=== PATIENT | male | born 1955 | race Two or more races ===

== ENCOUNTER 2022-03-15 15:09 | Emergency (ER) | payer MEDICARE ==
[~2022-03-15] VITALS: Ht 160 cm; Wt 70.5 kg
[2022-03-15 15:18] VITALS: BP 145/70
[2022-03-15] MEDS ORDERED: HYDR-3972 PO (17:51)
[2022-03-15] MEDS ORDERED: HYDROcodone/acetaminophen 10/325mg tab PO ONE (18:30)
--- NOTE | 2022-03-15 19:33 | NUR ---
SPLINTING DONE BY DAVIDA VANESSA
== END 2022-03-15 19:33 | disposition home or self-care (01) ==
LOC: ER 15:09
DX: S82.201A Unspecified fracture of shaft of right tibia, initial encounter for closed fracture (principal); X50.9XXA Other and unspecified overexertion or strenuous movements or postures, initial encounter; Y93.89 Activity, other specified; Y92.89 Other specified places as the place of occurrence of the external cause; Y99.8 Other external cause status
CPT/HCPCS: 29515; 73610; 99283; A6449

== ENCOUNTER 2022-04-12 07:37 | Day surgery (SDC) | payer MEDICARE ==
[2022-04-10 10:42] LABS: CLARITY,URINE CLEAR (Clear); COLOR,URINE YELLOW (Yellow); GLUCOSE, URINE NEGATIVE (Neg); KETONES,URINE TRACE mg/dl (Neg); LEUKOCYTE ESTERASE ,URINE NEGATIVE (Neg); NITRITES, URINE NEGATIVE (Neg); OCCULT BLOOD,URINE NEGATIVE (Neg); PH,URINE 5.5 (4.8-8.0); PROTEIN,URINE NEGATIVE (Neg); UROBILINOGEN,URINE 0.2 E.U/dL (0.2-1.0)
[2022-04-10 10:45] LABS: BASOPHILS % (AUTO) 0.4 % (0-1); EOSINOPHILS % (AUTO) 0.2 % (0-6); LYMPHOCYTES # (AUTO) 0.9 X10'3 (1.1-4.8); LYMPHOCYTES % (AUTO) 9.9 % (21-51); MEAN CORPUSCULAR HEMOGLOBIN 30.8 PG (27.0-31.0); MEAN CORPUSCULAR HGB CONC 34.2 g/dL (33.0-36.5); MEAN CORPUSCULAR VOLUME 90.2 FL (78-98); MEAN PLATELET VOLUME 8.9 FL (7.4-10.4); MONOCYTES # (AUTO) 0.4 X10'3 (0-0.9); MONOCYTES % (AUTO) 4.3 % (2-12); NEUTROPHILS # (AUTO) 8.1 X10'3 (1.8-7.7); NEUTROPHILS % (AUTO) 85.2 % (42-75); PRE OP HEMATOCRIT 40.1 % (42.0-52.0); PRE OP HEMOGLOBIN 13.7 g/dL (14.0-17.9); PRE OP PLATELET COUNT 282 X10'3 (140-440); RED BLOOD COUNT 4.44 X10'6 (4.70-6.10); RED CELL DISTRIBUTION WIDTH 13.5 % (11.5-14.5)
[2022-04-10 10:54] LABS: UA COLLECTION TYPE CLN CATCH MIDSTREAM
[2022-04-10 10:56] LABS: ALBUMIN 3.7 G/DL (3.4-5.0); ALBUMIN/GLOBULIN RATIO 0.9 (1.1-1.5); ALKALINE PHOSPHATASE 120 IU/L (46-116); BLOOD UREA NITROGEN 16 MG/DL (7-18); BUN/CREATININE RATIO 15.5 (5.4-32.0); CALCIUM 9.1 MG/DL (8.5-10.1); CHLORIDE 101 MMOL/L (99-107); CREATININE 1.03 MG/DL (0.60-1.10); PRE OP ALT 45 U/L (30-65); PRE OP ANION GAP 8 (8-16); PRE OP AST 36 U/L (10-37); PRE OP BILIRUB, TOTAL 0.8 MG/DL (0.0-1.0); PRE OP GLUCOSE 114 MG/DL (70-104); PRE OP SODIUM 137 MMOL/L (135-145); TOTAL CARBON DIOXIDE 27.8 MMOL/L (24-32); TOTAL PROTEIN 7.7 G/DL (6.4-8.2); eGFR 72 ML/MIN
[~2022-04-12] VITALS: Ht 160 cm; Wt 67.1 kg
[2022-04-12] VITALS (10 sets, daily range): BP systolic 128–152; BP diastolic 78–86
[~2022-04-12 07:37] MED LIST: ALBU8HFA PO; ASPI-1397 PO; BECL10.6 PO; CEPH-585 PO; ERGO500093 PO; HYDR-3972 PO; META-25 PO; PREG150C46 PO; TRAM50TA2 PO; albuterol 2.5 MG/3 ML nebule NEB ONE; ceFAZolin inj. 2,000 MG in dextrose 5%-water 100 ML IV ONE; famotidine 20mg tablet PO ONE; ringers solution, lacted 1,000 ML IV SCH
[2022-04-12] MEDS ORDERED: vancomycin 1,500 MG in NS 300ml IV soln IV ONE (09:12)
[2022-04-12] MEDS ORDERED: bacitracin 15gm ointment TP ONE ×2 (11:28→14:35)
[2022-04-12] MEDS ORDERED: BUPIVAcaine/PF 5 mg/ml 10ml ONE (12:34)
[2022-04-12] MEDS ORDERED: fentaNYL/PF 50MCG/1 ML 2ML syringe ONE ×2 (12:51→14:04)
[2022-04-12] MEDS ORDERED: midazolam 1 mg/ML 2ml injection ONE (12:51)
[2022-04-12] MEDS ORDERED: labetalol 20mg/4ml (5mg/ml) syringe IV PRN (13:20)
[2022-04-12] MEDS ORDERED: hydrALAZINE 20mg/ml inj. IV PRN (13:20)
[2022-04-12] MEDS ORDERED: fentaNYL/PF 50MCG/1 ML 2ML syringe IV PRN (13:20)
[2022-04-12] MEDS ORDERED: ondansetron/PF 4mg/2ml inj IV PRN (13:20)
[2022-04-12] MEDS ORDERED: morphine 2 MG/ML inj. syringe IV PRN (13:20)
[2022-04-12] MEDS ORDERED: ringers solution, lacted 1,000 ML IV SCH (13:20)
[2022-04-12] MEDS ORDERED: acetaminophen 1,000mg/100ml IV 100 ML IV ONE ×2 (13:21→13:27)
[2022-04-12] MEDS ORDERED: LIDOcaine 2% (20mg/ml) 5ml vial ONE (13:27)
[2022-04-12] MEDS ORDERED: propofol inj 20 ML IV ONE (13:27)
[2022-04-12] MEDS ORDERED: ondansetron/PF 4mg/2ml inj ONE (13:28)
[2022-04-12] MEDS ORDERED: dexamethasone sod phosphate 4mg/ml inj. ONE (13:28)
[2022-04-12] MEDS ORDERED: ROPIVAcaine 0.5% (5mg/ml) 30ml vial ONE ×2 (13:31)
[2022-04-12] MEDS ORDERED: ketorolac trometh. 30mg/ml inj. ONE (14:39)
--- NOTE | 2022-04-12 15:00 | NUR ---
Received from OR via [facility], accompanied by Anesthesiologist, DR. BUENO-REPORT GIVEN. PATIENT STILL DROWSY, NO S/S OF PAIN, V/S WNL, SCD ON, 20G TO LUE, RIGHT FOOT WRAPPED WITH VIN WRAP AND HARD SPLINT-CDI, TOES PINK WARM, CSM+, ELEVATED WITH ICE, POPLITEAL PULSE PRESENT
[2022-04-12] MEDS: morphine 4 MG/ML inj SYRINge IV PRN ×2 (15:16→15:54)
[2022-04-12] MEDS: fentaNYL/PF 50MCG/1 ML 2ML syringe IV PRN ×2 (15:29→15:50)
--- NOTE | 2022-04-12 16:30 | NUR ---
PT AWAKE AND GETTING DRESSED, GAVE IV NARCOTICS TO HELP WITH PAIN-WANTING TO WAIT UNTIL HOME FOR ORAL PAIN MEDS D/T NAUSEA OF MEDS W/O FOOD ON STOMACH, VSS, CSM PRESENT TO RIGHT FOOT, ANCA-CDI, PIV-D/CD, DISCUSSED HOME PAIN PILL SITUATION-NO NEW MEDS ORDERED AT THIS TIME, PT HAS ULTRAM AND SOME NORCO REMAINING-IF NEED FOR MORE PAIN MEDS ARISES-ENCOURAGED TO CALL D/C INSTRUCTIONS DISCUSSED WITH PT-ALL QUESTIONS ANSWERED, PT TAKEN WITH ALL BELONGINGS TO VEHICLE FOR TRANSPORT HOME.
== END 2022-04-12 16:30 | disposition home or self-care (01) ==
LOC: PAS 07:37
PROVIDERS: ATTEND Podiatrist Foot & Ankle Surgery
DX: S82.861A Displaced Maisonneuve's fracture of right leg, initial encounter for closed fracture (principal); M25.371 Other instability, right ankle; Z79.82 Long term (current) use of aspirin; Z87.891 Personal history of nicotine dependence; X58.XXXA Exposure to other specified factors, initial encounter; Z79.899 Other long term (current) drug therapy; Z98.890 Other specified postprocedural states; G47.30 Sleep apnea, unspecified; G89.18 Other acute postprocedural pain
CPT/HCPCS: 27766; 27829; 36415; 64445; 64447; 73600; 76942; 80053; 81003; 82948; 85025; 93005; A6223; C1713; J0131; J0690; J1100; J1885; J2250; J2270; J2405; J2704; J2795; J3010; J3490; J7030; J7060; J7120; Z7506; Z7508; Z7512; 76000; A4618; A6253; A6449; A7000